=== PATIENT | female | born 1935 | race African-American/Black ===

== ENCOUNTER 2021-11-29 14:03 | Emergency (ER) | payer MEDICARE, MEDICAID ==
[~2021-11-29] VITALS: Ht 172.7 cm; Wt 72.7 kg
[2021-11-30] MEDS ORDERED: ACET-1156 PO (07:46)
[2021-11-30 08:15] VITALS: BP 152/76
[2021-11-30] MEDS ORDERED: ACET1CAP14 PO (08:22)
== END 2021-11-30 11:37 | disposition home or self-care (01) ==
LOC: EDBD 14:03 → ER 14:03
DX: B02.9 Zoster without complications (principal); E11.9 Type 2 diabetes mellitus without complications; E78.5 Hyperlipidemia, unspecified